=== PATIENT | female | born 1940 | race Caucasian/White ===

== ENCOUNTER → 2018-01-14 | Outpatient (CLI) | payer MEDICARE ==
--- NOTE | 2018-01-15 13:10 | BD ---
EXAMINATION TYPE: Axial Bone Density DATE OF EXAM: 01/14/2018 COMPARISON: 10.01.2015 CLINICAL HISTORY: 77 YR OLD FEMALE.....ICD-10 CODE: M81.0 OSTEOPOROSIS Height: 60 Weight: 157 FRAX RISK QUESTIONS: History of Fracture in Adulthood: YES RISK FACTORS HISTORY OF: HX OF BROKEN FOOT, AT 75 YRS OLD Family History of Osteoporosis: YES, HER MOTHER NO HIP FX Diet low in dairy products/other sources of calcium: NO Postmenopausal woman: AT AGE 46, TOTAL HYST. MEDICATIONS: Thyroid Medications: YES, SYNTHROID, FOR ABOUT 10 YRS Osteoporosis Medications: YES, ALENDRONATE FOR ABOUT 7 YRS Additional Medications: CALCIUM AND VIT D, CILALOPRAM, LOVASTATIN, VITAMIN E AND B COMPLES Additional History: NOTHING ELSE TO ADD EXAM MEASUREMENTS: Bone mineral densitometry was performed using the [employer] System. Bone mineral density as measured about the Lumbar spine is: ----- L1-L4(G/cm2): 0.947 T Score Values are as follows: ----- L1: -1.4 ----- L2: -1.0 ----- L3: -2.2 ----- L4: -3.0 ----- L1-L4: -1.9 Bone mineral density has: Increased 0.4% since study of: 10.01.2015 Bone mineral density about the R hip (g/cm2): 1.024 Bone mineral density about the L hip (g/cm2): 0.805 T Score values are as follows: -----R Neck: 1.5 -----L Neck: -2.1 -----R Total: 0.1 -----L Total: -1.6 Bone mineral density has: Increased 0.7% since study of: 10.01.2015 FRAX%s: THERE IS A 21.3% CHANCE OF A MAJOR OSTEOPOROTIC FX AND A 5.6% FOR A HIP FX....PROBABILITY OF FX IN 10 YRS TIME IMPRESSION: Osteopenia (T Score between -2.5 and -1). There is slightly increased risk of fracture and the patient may be considered for treatment. Re-Screen 2-5 years. NOTE: T-SCORE=SD OF THE YOUNG ADULT MEAN.
--- NOTE | 2018-01-19 09:22 | MM ---
Reason for exam: screening (asymptomatic). Last mammogram was performed 2 years and 3 months ago. History: Patient is postmenopausal. Physical Findings: A clinical breast exam by your physician is recommended on an annual basis and results should be correlated with mammographic findings. MG Screening Mammo w CAD Bilateral CC and MLO view(s) were taken. Prior study comparison: October 01, 2015, bilateral MG screening mammo w CAD. June 22, 2013, bilateral digital screening mammo w/CAD. The breast tissue is heterogeneously dense. This may lower the sensitivity of mammography. Benign appearing bilateral calcifications. No suspicious abnormality. No significant changes when compared with prior studies. ASSESSMENT: Benign, BI-RAD 2 RECOMMENDATION: Routine screening mammogram of both breasts in 1 year.
== END | disposition home or self-care (01) ==
LOC: RADMAMWWP 15:48
PROVIDERS: ATTEND Internal Medicine Geriatric Medicine
DX: Z12.31 Encounter for screening mammogram for malignant neoplasm of breast (principal); M81.0 Age-related osteoporosis without current pathological fracture
CPT/HCPCS: 77067; 77080

== ENCOUNTER → 2019-11-09 | Outpatient (CLI) | payer MEDICARE ==
--- NOTE | 2019-11-10 11:41 | MM ---
Reason for exam: screening (asymptomatic). Last mammogram was performed 1 year and 10 months ago. History: Patient is postmenopausal. Physical Findings: A clinical breast exam by your physician is recommended on an annual basis and results should be correlated with mammographic findings. MG 3D Screening Mammo W/Cad Bilateral CC and MLO view(s) were taken. Prior study comparison: January 14, 2018, bilateral MG screening mammo w CAD. October 01, 2015, bilateral MG screening mammo w CAD. The breast tissue is heterogeneously dense. This may lower the sensitivity of mammography. Suspect a large underlying cyst 11 o'clock central right breast unchanged from priors. Benign popcorn calcifications on the right medially. No significant changes when compared with prior studies. ASSESSMENT: Benign, BI-RAD 2 RECOMMENDATION: Routine screening mammogram of both breasts in 1 year.
== END | disposition home or self-care (01) ==
LOC: RADMAMWWP 09:22
PROVIDERS: ATTEND Internal Medicine Geriatric Medicine
DX: Z12.31 Encounter for screening mammogram for malignant neoplasm of breast (principal)
CPT/HCPCS: 77063; 77067

== ENCOUNTER → 2020-03-28 | Outpatient (CLI) | payer MEDICARE ==
--- NOTE | 2020-03-28 14:24 | BD ---
EXAMINATION TYPE: Axial Bone Density DATE OF EXAM: 03/28/2020 COMPARISON: NONE CLINICAL HISTORY: Height: 60 Weight: 151.1 FRAX RISK QUESTIONS: Alcohol (3 or more units per day): no Family History (Parent hip fracture): no Glucocorticoids (More than 3mos): no (Ex: prednisone, prednisolone, methylprednisolone, dexamethasone, and hydrocortisone). History of Fracture in Adulthood: yes Secondary Osteoporosis: 1. Type 1 Diabetes: no 2. Hyperthyroidism: no 3. Menopause before 45: no 4. Malnutrition: no 5. Chronic liver disease: no Rheumatoid Arthritis: no Current Tobacco Use: no RISK FACTORS HISTORY OF: Family History of Osteoporosis: yes Active: sometimes Diet low in dairy products/other sources of calcium: no Postmenopausal woman: age 46 Lost more than 2 inches in height since high school: just 2 inches MEDICATIONS: lovastatin, citalopram, vitamins Additional History: EXAM MEASUREMENTS: Bone mineral densitometry was performed using the [employer] System. Bone mineral density as measured about the Lumbar spine is: ----- L1-L4(G/cm2): 0.997 T Score Values are as follows: ----- L2: -0.8 ----- L3: -1.5 ----- L4: -2.3 ----- L1-L4: -1.5 Bone mineral density has: increased 7.3 % since study of: 01.14.2018 Bone mineral density about the R hip (g/cm2): 1.278 Bone mineral density about the L hip (g/cm2): 0.721 T Score values are as follows: -----R Neck: 1.7 -----L Neck: -2.3 -----R Total: 0.2 -----L Total: -1.9 Bone mineral density has: decreased -1.2 % since study of: 01.14.2018 IMPRESSION: Osteopenia (T Score between -2.5 and -1). There is slightly increased risk of fracture and the patient may be considered for treatment. Re-Screen 2-5 years. NOTE: T-SCORE=SD OF THE YOUNG ADULT MEAN.
== END | disposition home or self-care (01) ==
LOC: RADBDWWP 09:56
PROVIDERS: ATTEND Nurse Practitioner Family
DX: M85.80 Other specified disorders of bone density and structure, unspecified site (principal); M81.0 Age-related osteoporosis without current pathological fracture
CPT/HCPCS: 77080

== ENCOUNTER → 2020-05-22 | Outpatient (CLI) | payer MEDICARE ==
--- NOTE | 2020-05-22 11:28 | CT ---
EXAMINATION TYPE: CT abdomen pelvis w con DATE OF EXAM: 05/22/2020 COMPARISON: None HISTORY: Abdominal pain with loose stools CT DLP: 737.00 mGycm CONTRAST: CT scan of the abdomen and pelvis is performed with Oral Contrast and with IV Contrast, patient injec starla with 100 ml mL of Isovue 300. FINDINGS: LUNG BASES-: No visible nodule. No infiltrate. LIVER/GB: No calcified gallstones. Mild hepatic steatosis noted. No space occupying hepatic lesion . Biliary tree is of normal caliber. PANCREAS: No inflammation. No distinct mass. SPLEEN: No splenic enlargement. No lesion seen. ADRENALS: No nodule. No thickening. KIDNEYS/BLADDER: No hydronephrosis. No nephrolithiasis. No distinct solid renal mass. Cyst left ki dney. Urinary bladder grossly unremarkable. BOWEL: Normal appendix. Normal bowel caliber. No inflammation. Moderate fecal stasis identified. GENITAL ORGANS: Hysterectomy changes seen. LYMPH NODES: No greater than 1cm abdominal or pelvic lymph nodes are appreciated. AORTA: No significant abnormality. OSSEOUS STRUCTURES: No significant abnormality is seen. OTHER: No significant additional abnormality is seen. IMPRESSION: 1. Moderate fecal stasis otherwise unremarkable study. 2. Mild fatty liver. 3. Simple cyst left kidney.
== END | disposition home or self-care (01) ==
LOC: RADCTMAIN 09:25
PROVIDERS: ATTEND Internal Medicine Geriatric Medicine
DX: N28.1 Cyst of kidney, acquired (principal); K76.0 Fatty (change of) liver, not elsewhere classified; R19.5 Other fecal abnormalities
CPT/HCPCS: 74177; 36415; Q9967

== ENCOUNTER → 2021-05-15 | Outpatient (CLI) | payer MEDICARE ==
--- NOTE | 2021-05-17 12:04 | MM ---
Reason for exam: screening (asymptomatic). Last mammogram was performed 1 year and 6 months ago. History: Patient is postmenopausal. Physical Findings: A clinical breast exam by your physician is recommended on an annual basis and results should be correlated with mammographic findings. MG 3D Screening Mammo W/Cad Bilateral CC and MLO view(s) were taken. Prior study comparison: November 09, 2019, bilateral MG 3d screening mammo w/cad. January 14, 2018, bilateral MG screening mammo w CAD. The breast tissue is heterogeneously dense. This may lower the sensitivity of mammography. Benign vascular calcifications bilaterally and a few scattered course calcifications are stable. No significant changes when compared with prior studies. ASSESSMENT: Benign, BI-RAD 2 RECOMMENDATION: Routine screening mammogram of both breasts in 1 year.
== END | disposition home or self-care (01) ==
LOC: RADMAMWWP 10:57
PROVIDERS: ATTEND Internal Medicine Geriatric Medicine
DX: Z12.31 Encounter for screening mammogram for malignant neoplasm of breast (principal); Z78.0 Asymptomatic menopausal state
CPT/HCPCS: 77063; 77067

== ENCOUNTER → 2021-09-19 | Outpatient (CLI) | payer MEDICARE ==
--- NOTE | 2021-09-19 09:50 | US ---
EXAMINATION TYPE: US abdomen complete DATE OF EXAM: 09/19/2021 COMPARISON: CT dated 05/22/2020 CLINICAL HISTORY: R10.84 ABD PAIN. RUQ pain radiating to back. EXAM MEASUREMENTS: Liver Length: 15.9 cm Gallbladder Wall: 0.1 cm CBD: 0.5 cm Spleen: 8.1 cm Right Kidney: 9.2 x 4.8 x 4.1 cm Left Kidney: 9.4 x 4.8 x 4.6 cm Pancreas: hyperechoic in its visualized portions Liver: lobular border noted inferior right lobe Gallbladder: wnl Evidence for sonographic Davidson's sign: no CBD: wnl Spleen: wnl Right Kidney: No hydronephrosis or masses seen Left Kidney: mid inferior cortical cyst seen = 1.4 x 1.6 x 1.0cm Upper IVC: wnl Abd Aorta: size is wnl, mild atheromatous change The intrahepatic portion of the IVC and proximal abdominal aorta are within normal limits. There is no evidence of cholelithiasis. Common bile duct is unremarkable. The visualized portions of the steward creas are homogenous. The spleen is unremarkable. Kidneys are symmetric and free of hydronephrosis. IMPRESSION: No abnormality evident to account for patient's symptoms
== END | disposition home or self-care (01) ==
LOC: RADUSWWP 07:50
PROVIDERS: ATTEND Internal Medicine Geriatric Medicine
DX: R10.84 Generalized abdominal pain (principal)
CPT/HCPCS: 76700

== ENCOUNTER → 2022-04-14 | Outpatient (CLI) | payer MEDICARE ==
--- NOTE | 2022-04-15 08:51 | MR ---
EXAMINATION TYPE: MR brain and iac wo/w con DATE OF EXAM: 04/14/2022 COMPARISON: NONE HISTORY: 82-year-old female Abnormal hearing loss, acoustic nerve disorder, right ear ringing. H93.1 9, H93.3X9, H91.90 TECHNIQUE: Multiplanar, multisequence images of the brain and brainstem were acquired before and aft er administration of 6.5 mL IV Gadavist. Diffusion weighted imaging was performed. Additional coned -down sequences through the internal auditory canals and posterior cranial fossa before and after IV contrast administration. FINDINGS: Diffusion weighted images demonstrate no evidence of an acute ischemic lesion in the brain. T2/FLAIR weighted sequences show moderate scattered bright white matter change in the cortical, periv entricular, and deep white matter regions of both cerebral hemispheres. Patchy signal change is also present in the bilateral paramedian bhaskar. Midline structures demonstrate partially empty sella but otherwise normal morphology. The craniocerv ical junction is normal. There is moderate cerebral cortical volume loss. The ventricles are of normal caliber. There is no evidence of an acute intracranial hemorrhage, infarct, mass, mass-effect or an extra-axia l fluid collection. There is no cerebellopontine angle mass. The internal auditory canals are symmetric. Small amount of fluid trapped in the inferior left masto id air cells. Brainstem and skull base abnormalities are not seen. Post contrast images demonstrate no evidence of pathologic enhancement in the posterior cranial milton a or the internal auditory canals. Dural venous sinuses are patent. There is no abnormal enhancement of the labyrinths. Osseous thickening of the right maxillary sinus [place] with partial opacification. Moderate mucosal th ickening throughout the bilateral ethmoid air cells. Slight leftward nasal septal deviation. Globes a ppear intact. Benign hyperostosis frontalis interna. IMPRESSION: 1. Moderate cerebral atrophy. There is also moderate burden of T2 bright white matter change which is nonspecific but likely relates to chronic small vessel ischemic disease. No acute intracranial abnor mality seen. 2. Small amount of trapped fluid in the inferior left mastoid air cells, probably incidental. Correla te for any mastoid pain to exclude mastoiditis. Otherwise, no specific abnormality on acoustic MRI. 3. 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 Additional moderate mucos al thickening in the ethmoid air cells.
== END | disposition home or self-care (01) ==
LOC: RADMRIMAIN 12:45
PROVIDERS: ATTEND Otolaryngology
DX: G31.9 Degenerative disease of nervous system, unspecified (principal); J32.0 Chronic maxillary sinusitis; H93.11 Tinnitus, right ear; J34.89 Other specified disorders of nose and nasal sinuses; H91.91 Unspecified hearing loss, right ear
CPT/HCPCS: 70553; A9585

== ENCOUNTER → 2022-05-16 | Outpatient (CLI) | payer MEDICARE ==
--- NOTE | 2022-05-16 22:47 | BD ---
EXAMINATION TYPE: Axial Bone Density DATE OF EXAM: 05/16/2022 COMPARISON: 03/28/2020 CLINICAL HISTORY: 82 years year old Female. ICD-10 CODE: M81.0 AGE-RELATED OSTEOPOROSIS Height: 59.2 IN Weight: 147 LBS FRAX RISK QUESTIONS: History of Fracture in Adulthood: RT FOOT FX AGE; Secondary Osteoporosis: 3. Menopause before 45: PARTIAL HYST AGE 42 RISK FACTORS HISTORY OF: Active: YES Postmenopausal woman: PARTIAL HYST AGE 42 MEDICATIONS: Thyroid Medications: YES Which medication: Levothyroxine How Lon+ YEARS Additional Medications: VIT D, CALCIUM, CHOLESTEROL MEDS, LEVOTHYROXINE,ANXIETY MEDS, EXAM MEASUREMENTS: Bone mineral densitometry was performed using the [employer] System. Bone mineral density as measured about the Lumbar spine is: ----- L1-L4(G/cm2): 1.065 T Score Values are as follows: ----- L1: -0.8 ----- L2: 0.4 ----- L3: -0.7 ----- L4: -2.7 ----- L1-L4: -1.0 Bone mineral density has: Increased 6.3% since study of: 03/28/2020 Bone mineral density about the R hip (g/cm2): 1.144 Bone mineral density about the L hip (g/cm2): 0.821 T Score values are as follows: -----R Neck: 0.8 -----L Neck: -1.6 -----R Total: -0.8 -----L Total: -1.8 Bone mineral density has: Decreased -6.9% since study of: 03/28/2020 FRAX%s: The graph provided illustrates a 19.5 chance for a major osteoporotic fx and a 4.5 chance for the hips probability for fx in 10 years time. IMPRESSION: Osteopenia (T Score between -2.5 and -1) is redemonstrated. There is slightly increased risk of fracture and the patient may be considered for treatment. Re-Screen 2-5 years. NOTE: T-SCORE=SD OF THE YOUNG ADULT MEAN.
--- NOTE | 2022-05-19 12:32 | MM ---
Reason for Exam: Screening (asymptomatic). Last screening mammogram was performed 12 month(s) ago. Patient History: Menarche at age 12. First Full-Term at age 19. Hysterectomy at age 41. Postmenopausal. Risk Values: Korina 5 year model risk: 1.3%. NCI Lifetime model risk: 1.8%. Prior Study Comparison: 01/14/2018 Bilateral Screening Mammogram, [facility]. 11/09/2019 Bilateral Screening Mammogram, [facility]. 05/15/2021 Bilateral Screening Mammogram, [facility]. Tissue Density: There are scattered fibroglandular densities. Findings: Analyzed By CAD. Pattern appears symmetrical and stable. Benign calcifications are present. Benign vascular calcification is present bilaterally. No suspicious groups of microcalcifications, spiculated or lobular masses, architectural distortion or other secondary signs of malignancy are mammographically apparent. Overall Assessment: Benign, BI-RAD 2 Management: Screening Mammogram of both breasts in 1 year. A negative mammogram report should not preclude additional follow up of suspicious palpable abnormalities. Patient should continue monthly self breast exam. A clinical breast exam by your physician is recommended on an annual basis and results should be correlated with mammographic findings. Electronically signed and approved by: Edmond Garcia D.O. Radiologis
== END | disposition home or self-care (01) ==
LOC: RADBDWWP 12:50
PROVIDERS: ATTEND Internal Medicine Geriatric Medicine
DX: Z12.31 Encounter for screening mammogram for malignant neoplasm of breast (principal); M85.89 Other specified disorders of bone density and structure, multiple sites; M81.0 Age-related osteoporosis without current pathological fracture; Z78.0 Asymptomatic menopausal state
CPT/HCPCS: 77067; 77080

== ENCOUNTER → 2024-11-29 | Outpatient (CLI) | payer MEDICARE ==
--- NOTE | 2024-12-01 12:47 | MR ---
EXAMINATION TYPE: MR brain wo/w con DATE OF EXAM: 11/29/2024 2:10 PM COMPARISON: MRI 04/14/2022 CLINICAL INDICATION: Female, 84 years old with history of G30.1 ALZHEIMER'S, Alzheimer's, left arm nu mbness. IV Contrast: 6.5 cc Gadobutrol (None if empty) TECHNIQUE: Multiplanar, multisequence images of the brain and brainstem were acquired before and aft er administration of 6.5 mL IV Gadobutrol. Diffusion weighted imaging is performed. FINDINGS: No evidence for acute infarction, hemorrhage, mass, mass effect, midline shift, herniation, effacemen t of basal cisterns, or extra-axial fluid collection. Redemonstrated moderate generalized supratentorial volume loss. Secondary mild prominence to the vent ricular system. Major intracranial flow voids are intact. T2/FLAIR weighted sequences show moderate scattered in patchy right white matter change throughout th e subcortical, deep, periventricular regions of both cerebral hemispheres. Mild patchy changes also p resent in the bhaskar. Midline structures demonstrate normal morphology. The craniocervical junction is normal. Post contrast images demonstrate no evidence of pathologic enhancement. Dural venous sinuses are pat ent. Long-standing right maxillary sinus disease with reactive osteogenesis and mucosal thickening. Some l ayering fluid is also noted. Scattered [id number] mucosal thickening bilateral ethmoid air cell s. Globes are intact. Trace fluid inferior left mastoid air cells, questionable clinical significance . IMPRESSION: 1. Relatively similar moderate generalized cerebral atrophy and moderate burden of small vessel ische romulo disease. 2. No acute intracranial abnormality or enhancing intracranial lesion seen. 3. Correlate for acute on chronic right maxillary sinusitis. [facility], , 12/01/2024 12:44 PM
== END | disposition home or self-care (01) ==
LOC: RADMRIMAIN 13:13
PROVIDERS: ATTEND Internal Medicine Geriatric Medicine
DX: I67.82 Cerebral ischemia (principal); G30.1 Alzheimer's disease with late onset; G31.9 Degenerative disease of nervous system, unspecified
CPT/HCPCS: 70553; A9585